=== PATIENT | male | born 1990 | race Caucasian/White ===

== ENCOUNTER 2016-10-31 13:04 | Emergency (ER) | payer OTHER ==
[~2016-10-31] VITALS: Ht 175.3 cm; Wt 68.0 kg
[2016-10-31] MEDS ORDERED: PROMETHAZINE HC25 M1 PO (14:05)
[2016-10-31] MEDS ORDERED: PERCOCET 5-3251 EACH PO (14:05)
== END 2016-10-31 14:38 | disposition home or self-care (01) ==
LOC: ED 13:04
DX: S01.81XD Laceration without foreign body of other part of head, subsequent encounter (principal); X58.XXXD Exposure to other specified factors, subsequent encounter
CPT/HCPCS: 99283

== ENCOUNTER 2016-11-06 20:38 | Emergency (ER) | payer OTHER ==
[~2016-11-06] VITALS: Ht 175.3 cm; Wt 68.0 kg
[~2016-11-06 20:38] MED LIST: PERCOCET 5-3251 EACH PO; PROMETHAZINE HC25 M1 PO
== END 2016-11-06 22:09 | disposition home or self-care (01) ==
LOC: ED 20:38
DX: S01.01XD Laceration without foreign body of scalp, subsequent encounter (principal); S12.400D Unspecified displaced fracture of fifth cervical vertebra, subsequent encounter for fracture with routine healing
CPT/HCPCS: 99282